=== PATIENT | female | born 1975 | race American Indian/Alaskan Native ===

== ENCOUNTER 2016-11-06 12:59 | Outpatient (CLI) | payer BC ==
--- NOTE | 2016-11-07 09:42 | Mammography Report ---
DIAGNOSTIC LEFT MAMMOGRAM AND LEFT WHOLE BREAST ULTRASOUND INCLUDING ALL 4 QUADRANTS AND SUBAREOLAR REGIONS: HISTORY: 6 month follow-up study. Comparison is made to the previous studies on April 07, 2016. FINDINGS: Very dense breast parenchyma is stable. There is a persistent circumscribed dense mass in the left breast at the 11:30 position, similar in size and configuration to the previous study. Scattered, monomorphic rounded calcifications are also stable. No suspicious calcifications or areas of distortion are seen. Left breast ultrasound demonstrates numerous cystic masses which are similar in size to the previous study. At the 12:00 position, a circumscribed hypoechoic mass is identified measuring 1.2 x 1.3 cm. There is no acoustic shadowing or other suspicious features. A complex cystic mass is seen at the 5:00 position measuring 1.7 x 2.4 cm. The largest cystic mass at the 1:00 position measures 6.9 cm x 4.2 cm. IMPRESSION: 1. Stable left hypoechoic mass at the 11:30 to 12:00 position. The imaging features are benign and there has been no interval change. 2. Stable additional cystic masses including a complex cyst throughout the left breast. BI-RADS CATEGORY: 2 = Benign ACR BI-RADS MAMMOGRAPHIC CODES: 0 = Needs additional imaging evaluation; 1 = Negative; 2 = Benign; 3 = Probably benign; 4 = Suspicious; 5 = Malignant; 6 = Known biopsy-proven malignancy COMMENT: 1. Dense breast tissue, i.e., adenosis, fibrocystic changes, etc., may obscure an underlying neoplasm. 2. Approximately 10% of cancers are not detected with mammography. 3. A negative mammography report should not delay biopsy if a clinically suspicious mass is present. RECOMMENDATION: Annual screening.
== END 2016-11-06 13:00 | disposition home or self-care (01) ==
LOC: MAMMO 12:59
PROVIDERS: ATTEND Obstetrics & Gynecology
DX: N60.02 Solitary cyst of left breast (principal); R92.2 Inconclusive mammogram
CPT/HCPCS: 76641; G0206